=== PATIENT | female | born 1970 | race Caucasian/White ===

== ENCOUNTER → 2018-02-03 | Outpatient (CLI) | payer OTHER ==
[~2018-02-03] MED LIST: CONTRAST GIVEN. MC PRN; IOHEXOL 240 MG/ML 50ML VIAL. PO ONE; IOHEXOL 300 MG/ML 100ML VIAL. IV ONE; PROAIR HFA8.5 GM IH
--- NOTE | 2018-02-03 17:42 | KCIC ---
CT study of the abdomen with and without contrast and CT study of the pelvis with contrast Clinical indications: Right upper quadrant and right lower quadrant pain since January 30, 2018. Urinary frequency. Cholecystectomy and hysterectomy. History of irritable bowel syndrome. Nausea in the morning. TECHNIQUE: Noncontrast helical CT scanning of abdomen was performed. After IV infusion of 100 cc Omnipaque 300, helical CT scanning of abdomen and pelvis was performed. GI contrast was administered per mouth. PQRS compliance Statement One or more of the following individualized dose reduction techniques were utilized for this study: 1. Automated exposure control 2. Adjustment of the mA and/or kV according to patient size 3. Use of iterative reconstruction technique COMPARISON: January 05, 2015. FINDINGS: No renal stone or hydronephrosis or hydroureter or ureteral stone is evident. Urinary bladder is not abnormally distended. No renal mass is seen. Again seen are hypodense lesions of the lateral aspect of the posterior segment of the right lobe liver and medial aspect of the liver within the inferior caudate lobe. These are unchanged in size. There is peripheral nodular enhancement consistent with hemangiomas. The spleen and pancreas are normal. The gallbladder is surgically absent. No extrahepatic biliary ductal dilatation is seen. No adrenal mass is evident. No focal aneurysmal dilatation of the abdominal aorta is seen. No enlarged abdominal or pelvic lymphadenopathy is evident. The uterus is surgically absent. Colonic diverticulosis is seen without diverticulitis. The appendix and terminal ileum are normal. No obstructive bowel pattern is evident. No free air or free fluid or mesenteric edema is evident. No lung base consolidation is evident. Grade 1 anterolisthesis of L5-S1 is seen secondary to bilateral spondylolysis of L5. No osteolytic process is seen. IMPRESSION: No acute abnormality of the abdomen or pelvis is evident. Stable hemangiomas of the liver. Grade 1 anterolisthesis of L5-S1 secondary to bilateral spondylolysis of L5. This is unchanged. Electronically signed by: Lucian Doyle MD (02/03/2018 5:39 PM) [facility]
== END | disposition home or self-care (01) ==
LOC: KCIC CT 12:16
PROVIDERS: ATTEND Nurse Practitioner
DX: R10.11 Right upper quadrant pain (principal); D18.00 Hemangioma unspecified site; M43.07 Spondylolysis, lumbosacral region; Z90.49 Acquired absence of other specified parts of digestive tract; Z90.710 Acquired absence of both cervix and uterus
CPT/HCPCS: 72193; 74170; Q9966; Q9967

== ENCOUNTER → 2021-07-20 | Day surgery (SDC) | payer OTHER ==
[~2021-07-20] VITALS: Ht 160 cm; Wt 96.0 kg
[~2021-07-20] MED LIST changes: +ALBU2.5V8 IH; -CONTRAST GIVEN. MC PRN; +FLUT1BLS15 IH; -IOHEXOL 240 MG/ML 50ML VIAL. PO ONE; -IOHEXOL 300 MG/ML 100ML VIAL. IV ONE; +IV RINGERS,LACTATED 1000ML 1,000 ML IV SCH; -PROAIR HFA8.5 GM IH; +PROPOFOL 10 MG/ML (20ML) VIAL. IV ONE
[2021-07-20 08:19] VITALS: BP 132/82
[2021-07-20 09:40] VITALS: BP 113/67
--- NOTE | 2021-07-23 18:06 | PATHOLOGY ---
[facility] Accession Number: [id number] . 01 Material submitted: . PART A: colon - RANDOM COLON BIOPSY PART B: colon - TRANSVERSE COLON POLYP. Modifiers: transverse . 01 Clinical history: . GI BLEEDING INFLAMMATION . 02 Diagnosis: A. Colonic mucosa, random colon biopsies: - No diagnostic abnormalities. . B. Colonic mucosa, transverse colon polyp biopsy: - Prominent mucosal fold. . (JPM:mm; 07/23/2021) [facility] 07/23/2021 1625 Local . 02 Comment: Sections of the random colon biopsy reveal multiple segments of colonic mucosa containing a few mucosal-associated lymphoid aggregates. There is no evidence of a chronic destructive colitis, lymphocytic colitis or collagenous colitis. . Sections of the transverse colon biopsy reveal segments of colonic mucosa focally containing portions of mucosal-associated lymphoid aggregate. There are no adenomatous changes or evidence of malignancy. The findings are consistent with a prominent mucosal fold. . (JPM:mml; 07/23/2021) . 02 Electronically signed: . Valeriy Reed MD, Pathologist NPI- [id number] . 01 Gross description: . A. Received in formalin labeled "Bojorquez, Dana, random colon biopsy" are multiple campoverde-brown soft tissue fragments measuring in aggregate 2.9 x 0.7 x 0.3 cm. The specimen is submitted entirely in A1. . B. Received in formalin labeled "Bojorquez, Dana transverse colon polyp" are multiple campoverde-brown soft tissue fragments measuring in aggregate 1.6 x 0.7 x 0.3 cm. The specimen is submitted entirely in B1. ([facility]; 07/21/2021) . GZA/GZA 07/21/2021 1401 Local . 02 Pathologist provided ICD-10: K92.1 . 02 CPT . 448625, [id number] Specimen Comment: A courtesy copy of this report has been sent to [phone], [phone] Specimen Comment: [id number] Specimen Comment: Report sent to / DR MORALES Specimen Comment: A duplicate report has been generated due to demographic updates. Performed at: 01 [facility] [address] [facility] [address], [place] [id number] MD Óscar Chairez MD Phone: [phone] Performed at: 02 [facility] [address] [place], [place] [id number] MD Valeriy Reed MD Phone: [phone]
== END | disposition home or self-care (01) ==
LOC: ENDOS 08:01
PROVIDERS: ATTEND Internal Medicine Gastroenterology
DX: K92.1 Melena (principal); R19.7 Diarrhea, unspecified; K64.0 First degree hemorrhoids; K63.5 Polyp of colon; K57.30 Diverticulosis of large intestine without perforation or abscess without bleeding; K63.89 Other specified diseases of intestine; J43.9 Emphysema, unspecified; G47.30 Sleep apnea, unspecified; K21.9 Gastro-esophageal reflux disease without esophagitis; E11.9 Type 2 diabetes mellitus without complications; M19.90 Unspecified osteoarthritis, unspecified site; F41.9 Anxiety disorder, unspecified; F32.9 Major depressive disorder, single episode, unspecified; Z90.710 Acquired absence of both cervix and uterus; Z98.890 Other specified postprocedural states; Z90.49 Acquired absence of other specified parts of digestive tract; Z88.1 Allergy status to other antibiotic agents; Z91.041 Radiographic dye allergy status; Z88.8 Allergy status to other drugs, medicaments and biological substances
CPT/HCPCS: 45380; 88305; J2704